=== PATIENT | female | born 1995 | race Caucasian/White ===

== ENCOUNTER 2020-08-19 20:52 | Outpatient (CLI) | payer SELFPAY | END 2020-08-19 20:53 | disposition EMS.NT | LOC: EMS 20:52 | DX: S01.01XA Laceration without foreign body of scalp, initial encounter (principal); R22.0 Localized swelling, mass and lump, head; W01.0XXA Fall on same level from slipping, tripping and stumbling without subsequent striking against object, initial encounter ==